=== PATIENT | female | born 1995 | race Hispanic/Latino ===

== ENCOUNTER 2018-08-11 11:24 | Emergency (ER) | payer OTHER ==
[2018-08-11 12:43] LABS: Absolute Monocytes 0.5 K/uL (0.1-1.3); Absolute Neutrophil 7.1 K/uL (1.8-8.0); Basophils % 0.6 % (0-1.3); Eosinophils % 1.5 % (0-4.4); Hematocrit 40.9 % (36.0-45.0); Lymphocytes % 19.9 % (15.3-44.8); MPV 9.2 fL (7.6-11.3); RBC Red Blood Cell Count 4.55 M/uL (3.86-4.86)
[2018-08-11 12:48] LABS: Protime INR 1.06
--- NOTE | 2018-08-11 13:08 | RAD REPORT ---
EXAM DESCRIPTION: RAD - Chest Single View - 08/11/2018 12:58 pm CLINICAL HISTORY: PALPITATIONS Chest pain. COMPARISON: ABDOMEN ACUTE SERIES dated 07/17/2009 FINDINGS: Portable technique limits examination quality. The lungs are grossly clear. The heart is normal in size. No displaced fractures. IMPRESSION: No acute intrathoracic process suspected.
[2018-08-11 13:09] LABS: ALT/SGPT 123 U/L (12-78); AST/SGOT 83 U/L (15-37); Alkaline Phosphatase 81 U/L (45-117); BUN Blood Urea Nitrogen 11 mg/dL (7-18); Bicarbonate 25 mmol/L (21-32); Bilirubin Direct < 0.1 mg/dL (0-0.2); Bilirubin Total 0.2 mg/dL (0.2-1.0); Glucose Level 103 mg/dL (74-106); Magnesium 2.3 mg/dL (1.8-2.4); NT PRO-BNP 12 pg/mL (<125); Potassium 4.1 mmol/L (3.5-5.1); Protein, Total 8.2 g/dL (6.4-8.2); Sodium Level 138 mmol/L (136-145); Troponin (Emerg Dept Use Only) < 0.02 ng/mL (0.0-0.045)
--- NOTE | 2018-08-11 14:39 | EDPHYS ---
Physician Documentation [facility] Name: Lan Villafuerte Age: 23 yrs Sex: Female : 1995 Arrival Date: 08/11/2018 Time: 11:28 Bed 24 Private MD: None, None ED Physician Sanchez Wilkerson HPI: 08/11 17:44 This 23 yrs old Female presents to ER via Ambulatory with complaints of kdr Palpitations. 17:44 The patient presents with a history of irregular heart beat, heart racing. Context: The kdr symptoms occur with anxiety, with light activity, without known cause. Onset: The symptoms/episode began/occurred acutely, suddenly, just prior to arrival. Duration: The patient or guardian reports a single episode, that is now resolved, Brief. Modifying factors: The symptoms are aggravated by nothing. The symptoms are alleviated by remaining still, rest. Associated signs and symptoms: Pertinent positives: anxiety, lightheadedness, nausea, SOB, near-syncope. Severity of symptoms: At their worst the symptoms were mild moderate just prior to arrival, in the emergency department the symptoms have resolved. The patient has not experienced similar symptoms in the past. The patient has not recently seen a physician. 17:44 The patient had been trying to decide if she should send a scrapbook for her husbands kdr x-. Then began to have palpiatations. Historical: - Allergies: 11:57 No Known Allergies; ph - PMHx: 11:57 PCOS; pre-eclampsia 2014; gestational diabetes 2014; ph - PSHx: 11:57 ; ph - Immunization history:: Adult Immunizations unknown. - Social history:: Smoking status: Patient/guardian denies using tobacco, Patient uses alcohol, only on a social basis. - Ebola Screening: : No symptoms or risks identified at this time. ROS: 17:44 Constitutional: Negative for fever, chills, and weight loss, Eyes: Negative for injury, kdr pain, redness, and discharge, ENT: Negative for injury, pain, and discharge, Neck: Negative for injury, pain, and swelling, Abdomen/GI: Negative for abdominal pain, nausea, vomiting, diarrhea, and constipation, Back: Negative for injury and pain, : Negative for injury, bleeding, discharge, and swelling, MS/Extremity: Negative for injury and deformity, Skin: Negative for injury, rash, and discoloration, Neuro: Negative for headache, weakness, numbness, tingling, and seizure activity. Psych: Negative for depression, anxiety, suicide ideation, homicidal ideation, and hallucinations, Allergy/Immunology: Negative for hives, rash, and allergies, Endocrine: Negative for neck swelling, polydipsia, polyuria, polyphagia, and marked weight changes, Hematologic/Lymphatic: Negative for swollen nodes, abnormal bleeding, and unusual bruising. 17:44 Cardiovascular: Positive for palpitations, Negative for chest pain, edema, orthopnea. 17:44 Respiratory: Positive for shortness of breath, Negative for cough, dyspnea on exertion, hemoptysis, orthopnea. Exam: 17:44 Constitutional: This is a well developed, well nourished patient who is awake, alert, kdr and in no acute distress. Head/Face: Normocephalic, atraumatic. Eyes: Pupils equal round and reactive to light, extra-ocular motions intact. Lids and lashes normal. Conjunctiva and sclera are non-icteric and not injected. Cornea within normal limits. Periorbital areas with no swelling, redness, or edema. Neck: Trachea midline, no thyromegaly or masses palpated, and no cervical lymphadenopathy. Supple, full range of motion without nuchal rigidity, or vertebral point tenderness. No Meningismus. Chest/axilla: Normal chest wall appearance and motion. Nontender with no deformity. No lesions are appreciated. Cardiovascular: Regular rate and rhythm with a normal S1 and S2. No gallops, murmurs, or rubs. Normal PMI, no JVD. No pulse deficits. Respiratory: Lungs have equal breath sounds bilaterally, clear to auscultation and percussion. No rales, rhonchi or wheezes noted. No increased work of breathing, no retractions or nasal flaring. Abdomen/GI: Soft, non-tender, with normal bowel sounds. No distension or tympany. No guarding or rebound. No evidence of tenderness throughout. Back: No spinal tenderness. No costovertebral tenderness. Full range of motion. Skin: Warm, dry with normal turgor. Normal color with no rashes, no lesions, and no evidence of cellulitis. MS/ Extremity: Pulses equal, no cyanosis. Neurovascular intact. Full, normal range of motion. Neuro: Awake and alert, GCS 15, oriented to person, place, time, and situation. Cranial nerves II-XII grossly intact. Motor strength 5/5 in all extremities. Sensory grossly intact. Cerebellar exam normal. Normal gait. Psych: Awake, alert, with orientation to person, place and time. Behavior, mood, and affect are within normal limits. Vital Signs: 11:55 Temp 99.4(O); jp3 12:00 BP 109 / 72; Pulse 94; Resp 18; Pulse Ox 98% on R/A; Pain 0/10; ss 14:51 BP 106 / 72; Pulse 72; Resp 16; Temp 97.1; Pulse Ox 98% on R/A; la1 MDM: 14:38 Patient medically screened. kdr 17:53 Data reviewed: vital signs, nurses notes, diagnostic data from outside facility, old [facility] medical records, lab test result(s). Counseling: I had a detailed discussion with the patient and/or guardian regarding: the historical points, exam findings, and any diagnostic results supporting the discharge/admit diagnosis, lab results, radiology results, the need for outpatient follow up. 08/11 12:20 Order name: Basic Metabolic Panel; Complete Time: 14:37 [facility] 08/11 12:20 Order name: CBC with Diff; Complete Time: 14:37 [facility] 08/11 12:20 Order name: LFT's; Complete Time: 14:37 [facility] 08/11 12:20 Order name: Magnesium; Complete Time: 14:37 [facility] 08/11 12:20 Order name: NT PRO-BNP; Complete Time: 14:37 [facility] 08/11 12:20 Order name: PT-INR; Complete Time: 14:37 [facility] 08/11 11:54 Order name: EKG; Complete Time: 11:54 08/11 11:54 Order name: EKG - Nurse/Tech; Complete Time: 11:57 08/11 12:20 Order name: Troponin (emerg Dept Use Only); Complete Time: 14:37 [facility] 08/11 12:20 Order name: XRAY Chest (1 view); Complete Time: 14:37 [facility] 08/11 12:20 Order name: Cardiac monitoring; Complete Time: 12:39 [facility] 08/11 12:20 Order name: IV Saline Lock; Complete Time: 12:39 [facility] 08/11 12:20 Order name: Labs collected and sent; Complete Time: 12:39 kdr 08/11 12:20 Order name: TSH; Complete Time: 14:37 kdr 08/11 12:20 Order name: O2 Per Protocol; Complete Time: 12:39 kdr 08/11 12:20 Order name: O2 Sat Monitoring; Complete Time: 12:39 kdr Administered Medications: No medications were administered Disposition: 08/11/18 14:38 Discharged to Home. Impression: Palpitations, Anxiety disorder, unspecified. - Condition is Stable. - Discharge Instructions: Panic Attacks, [id number], Palpitations, [id number]-[id number]. - Medication Reconciliation Form, Thank You Letter, Work release form, Family Work Release form. - Follow up: Private Physician; When: 2 - 3 days; Reason: If symptoms return, Further diagnostic work-up, Recheck today's complaints, Continuance of care, Re-evaluation by your physician. - Problem is new. - Symptoms are resolved. Signatures: Dispatcher [employer] EDMS Sanchez Wilkerson MD MD kdr Elizabeth Sagastume RN RN ss Beltran Scott RN RN la1 Damari Hendricks RN RN ph Corrections: (The following items were deleted from the chart) 14:52 14:38 08/11/2018 14:38 Discharged to Home. Impression: Palpitations; Anxiety disorder, la1 unspecified. Condition is Stable. Forms are Medication Reconciliation Form, Thank You Letter, Antibiotic Education, Prescription Opioid Use. Follow up: Private Physician; When: 2 - 3 days; Reason: If symptoms return, Further diagnostic work-up, Recheck today's complaints, Continuance of care, Re-evaluation by your physician. Problem is new. Symptoms are resolved. kdr
--- NOTE | 2018-08-11 14:39 | ER ---
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 Transition of care: patient was not received from another setting of care. Onset of symptoms was August 11, 2018. Risk Assessment: Do you want to hurt yourself or someone else? Patient reports no desire to harm self or others. Initial Sepsis Screen: Does the patient meet any 2 criteria? No. Patient's initial sepsis screen is negative. Does the patient have a suspected source of infection? No. Patient's initial sepsis screen is negative. Care prior to arrival: None. 11:54 Method Of Arrival: Ambulatory ph 11:54 Acuity: NAOMI 3 ph Triage Assessment: 11:57 General: Appears in no apparent distress. comfortable, well groomed, Behavior is calm, ph cooperative, appropriate for age. Pain: Denies pain. Cardiovascular: Denies chest pain, lightheadedness, palpitations, shortness of breath. Historical: - Allergies: 11:57 No Known Allergies; ph - PMHx: 11:57 PCOS; pre-eclampsia 2014; gestational diabetes 2014; ph - PSHx: 11:57 ; ph - Immunization history:: Adult Immunizations unknown. - Social history:: Smoking status: Patient/guardian denies using tobacco, Patient uses alcohol, only on a social basis. - Ebola Screening: : No symptoms or risks identified at this time. Screenin:00 Abuse screen: Denies threats or abuse. Denies injuries from another. Nutritional ss screening: No deficits noted. Tuberculosis screening: Never had TB. Fall Risk None identified. Assessment: 12:16 General: Appears in no apparent distress. comfortable, Behavior is calm, cooperative, ss Denies fever, feeling ill, fatigue, chills. Pain: Denies pain. Neuro: Level of Consciousness is awake, alert, obeys commands, Oriented to person, place, time, situation. Neuro: Reports. Cardiovascular: Reports palpitations, since that began just prior to arrival, school nurse stated that HR was 120, pt reports that palpitations have since gone away. Respiratory: Airway is patent Respiratory effort is even, unlabored, Respiratory pattern is regular, symmetrical, Denies cough, shortness of breath labored breathing, pain with respiration, pain with cough, pain with movement. GI: Patient currently denies diarrhea, nausea, vomiting. : No signs and/or symptoms were reported regarding the genitourinary system. EENT: Oral mucosa is moist. Throat is clear. Derm: Skin is pink, warm \T\ dry. normal. 12:44 Reassessment: No changes from previously documented assessment. Patient and/or family la1 updated on plan of care and expected duration. Pain level reassessed. 14:52 Reassessment: Patient appears in no apparent distress at this time. No changes from la1 previously documented assessment. Patient and/or family updated on plan of care and expected duration. Pain level reassessed. Patient is alert, oriented x 3, equal unlabored respirations, skin warm/dry/pink. Vital Signs: 11:55 Temp 99.4(O); jp3 12:00 BP 109 / 72; Pulse 94; Resp 18; Pulse Ox 98% on R/A; Pain 0/10; ss 14:51 BP 106 / 72; Pulse 72; Resp 16; Temp 97.1; Pulse Ox 98% on R/A; la1 ED Course: 11:28 Patient arrived in ED. sb2 11:28 None, None is Private Physician. sb2 11:45 Sanchez Wilkerson MD is Attending Physician. kdr 11:56 Triage completed. ph 11:57 Arm band placed on Patient placed in an exam room, on a stretcher, on shelter monitor, ph on pulse oximetry. 12:00 Patient has correct armband on for positive identification. Bed in low position. Call ss light in reach. monitoring and evaluation advisor on. Pulse ox on. NIBP on. 12:00 Patient maintains SpO2 saturation greater than 95% on room air. ss 12:16 Elizabeth Sagastume, MYNOR is Primary Nurse. ss 12:26 EKG done, by fuel cell battery technician. reviewed by Sanchez Wilkerson MD. at1 12:30 Initial lab(s) drawn, by ne, sent to lab. jp3 12:38 Inserted saline lock: 20 gauge in right antecubital area, using aseptic technique. jp3 Blood collected. 12:39 TSH Sent. jp3 12:39 Troponin (emerg Dept Use Only) Sent. jp3 12:39 Basic Metabolic Panel Sent. jp3 12:39 CBC with Diff Sent. jp3 12:40 Placed in gown. Side rails up X 1. Side rails up X2. jp3 12:40 LFT's Sent. jp3 12:40 Magnesium Sent. jp3 12:40 NT PRO-BNP Sent. jp3 12:40 PT-INR Sent. jp3 12:56 X-ray completed. Portable x-ray completed in exam room. Patient tolerated procedure jb2 well. 13:00 XRAY Chest (1 view) In Process Unspecified. EDMS 14:51 No provider procedures requiring assistance completed. IV discontinued, intact, la1 bleeding controlled, No redness/swelling at site. Pressure dressing applied. Administered Medications: No medications were administered Outcome: 14:38 Discharge ordered by . kdr 14:51 Discharged to home ambulatory. la1 14:51 Condition: stable 14:51 Discharge instructions given to patient, family, Instructed on discharge instructions, follow up and referral plans. Demonstrated understanding of instructions, follow-up care. 14:52 Patient left the ED. la1 Signatures: Dispatcher [employer] EDNE Sanchez Wilkerson MD MD kdr Lester Khan jb2 Elizabeth Sagastume RN RN Flakita Parish, pitch worker EKG Tat1 Beltran Scott RN RN la1 Damari Hendricks RN RN Debbie Pleitez2 Froylan Cr jp3
--- NOTE | 2018-08-11 17:17 | EKG ---
Test Date: 2018-08-11 Test Time: 11:56:56 Computer Systems Designer: NAOMI MEASUREMENT RESULTS: Intervals: Rate: 82 MT: 138 QRSD: 120 QT: 388 QTc: 453 [place]: P: 36 MT: 138 QRS: 16 T: 16 INTERPRETIVE STATEMENTS: Normal sinus rhythm Right bundle branch block Abnormal ECG No previous ECG available for comparison Electronically Signed On 08-11-18 17:15:57 KELLER MACHINE OPERATOR by Sal Leslie
== END 2018-08-11 14:52 | disposition home or self-care (01) ==
LOC: ER 11:24
DX: F41.9 Anxiety disorder, unspecified (principal)
CPT/HCPCS: 36415; 71045; 80048; 80076; 83735; 83880; 84443; 84484; 85025; 85610; 93005; 99285